=== PATIENT | male | born 1950 | race Caucasian/White ===

== ENCOUNTER 2019-03-12 17:11 | Emergency (ER) | payer BC, MEDICARE ==
[2019-03-12 19:36] VITALS: TEMP 98.1; BMI 18.8
--- NOTE | 2019-03-12 19:49 | ED PDOC ---
Arrival/HPI - General Chief Complaint: Upper Extremity Problem/Injury Time Seen by Provider: 03/12/19 19:15 Historian: Patient - History of Present Illness Narrative History of Present Illness (Text): 03/12/19 19:46 68 y.o male with no significant past medical history, who presents to the emergency department complaining of left shoulder discomfort past week. Patient initially seen by PMD prescribed steroids.Patient developed some spontaneous bruises in the chest and abdominal area non traumatic.Patient was to go outpatient for CT scan. Patient to ED for evaluation. Patient denies any chest pain, abdominal pain, nausea, vomiting, shortness of breath, fever, chills. Time/Duration: 1 week Symptom Onset: Gradual Symptom Course: Unchanged Context: Home Past Medical History - Provider Review Nursing Documentation Reviewed: Yes - Infectious Disease Hx of Infectious Diseases: None - Psychiatric Hx Substance Use: No - Anesthesia Hx Anesthesia: No Family/Social History - Physician Review Nursing Documentation Reviewed: Yes Family/Social History: No Known Family HX Smoking Status: Never Smoked Hx Alcohol Use: No Hx Substance Use: No Allergies/Home Meds Allergies/Adverse Reactions: Allergies ibuprofen [From Motrin] Allergy (Verified 04/20/16 17:24) RASH Review of Systems - Review of Systems Constitutional: absent: Fevers Respiratory: absent: SOB Cardiovascular: absent: Chest Pain Gastrointestinal: absent: Abdominal Pain, Nausea, Vomiting Musculoskeletal: Other (Left shoulder and chest discomfort. ) Physical Exam Vital Signs Reviewed: Yes Vital Signs Temp Pulse Resp BP Pulse Ox 03/12/19 19:06 98.1 F 73 19 122/75 99 Temperature: Afebrile Blood Pressure: Normal Pulse: Regular Respiratory Rate: Normal Appearance: Positive for: Well-Appearing, Non-Toxic, Comfortable Pain Distress: None Mental Status: Positive for: Alert and Oriented X 3 - Systems Exam Pupils: Present: PERRL Extroacular Muscles: Present: EOMI Respiratory/Chest: Present: Clear to Auscultation, Good Air Exchange. No: Respiratory Distress, Accessory Muscle Use, Wheezes, Rhonchi Cardiovascular: Present: Regular Rate and Rhythm, Normal S1, S2. No: Murmurs Abdomen: Present: Other (Ecchymosis to left lower abdomen and left chest. ). No: Tenderness Upper Extremity: Present: Other (Palpable tenderness to anterior left shoulder. ) Neurological: Present: GCS=15, CN II-XII Intact, Speech Normal Skin: Present: Warm, Dry, Normal Color. No: Rashes Psychiatric: Present: Alert, Oriented x 3, Normal Insight, Normal Concentration Medical Decision Making ED Course and Treatment: 03/12/19 21:52 CONTRAST: With; OMNI 350 100 ml COMPARISON: None provided. FINDINGS: CHEST: LUNGS: No pulmonary mass. The lungs appear essentially clear. PLEURAL SPACES: No pneumothorax evident. No pleural effusions. HEART: No cardiomegaly. No pericardial effusion. LYMPH NODES: No lymphadenopathy is evident. ABDOMEN AND PELVIS: LIVER: Numerous tiny (3-5 mm) cysts are scattered diffusely throughout the liver. No focal suspicious lesions detected. GALLBLADDER AND BILE DUCTS: The gallbladder appears within normal limits. No radioopaque gallstones are seen. No biliary ductal dilatation is evident. PANCREAS: Unremarkable. SPLEEN: Unremarkable. ADRENAL GLANDS: Unremarkable. KIDNEYS, URETERS, AND BLADDER: Unremarkable. No hydronephrosis or nephrolithiasis. No uterteral or bladder calculi. The urinary bladder appeared normal in size and configuration. STOMACH AND BOWEL: Unremarkable appearance of the stomach and bowel. No evidence of bowel obstruction. No evidence suggesting enteritis or colitis. APPENDIX: No evidence of acute appendicitis on CT examination. PERITONEUM: No free fluid. No free air. A small left inguinal hernia is identified which contains fat. There is subtle left kayla-inguinal subcutaneous stranding which may indicate bruising or inflammation. LYMPH NODES: No lymphadenopathy is evident. VASCULATURE: No evidence of abdominal aortic aneurysm. REPRODUCTIVE: The seminal vesicles appeared normal and symmetrical in size. There is mild prostatic hypertrophy noted. The prostate gland measured 5.3 cm transversely. BONES: No acute osseous abnormality. There is evidence of advanced degenerative disc disease at L4-5. IMPRESSION: No acute intra-thoracic abnormality. Numerous tiny hepatic cysts scattered diffusely throughout the liver. A small left inguinal hernia is noted which contains fat. There is subtle left kayla-inguinal subcutaneous stranding which may indicate bruising or inflammation. Mild prostatic hypertrophy. Electronically signed on March 12, 2019 9:30:42 PM EDT by: Tyshawn Chapman M.D., M.B.A., Certified By [facility] [employer] Trained MRI and CT Specia 03/12/19 22:24 Case was discussed with s nurse practioner who saw the patient in the office.Given normal findings patient is requested follow up in the office.Will place on analgesics/ortho follow up as well. 03/12/19 22:32 Chest X-ray reviewed by me, shows: No acute process. - RAD Interpretation Radiology Orders: 03/12/19 19:23 CHEST PORTABLE [RAD] Stat 03/12/19 19:25 CHEST,ABD,PEL W/IV CONT ONLY [CT] Stat - EKG Interpretation EKG Interpretation (Text): 03/12/19 20:05 EKG shows: NSR at [address]/T changes. Interpreted by ED Physician: Yes Type: 12 lead EKG - Scribe Statement The provider has reviewed the documentation as recorded by the Scribe Sandra Rodrigez All medical record entries made by the Scribe were at my direction and personally dictated by me. I have reviewed the chart and agree that the record accurately reflects my personal performance of the history, physical exam, medical decision making, and the department course for this patient. I have also personally directed, reviewed, and agree with the discharge instructions and disposition. Disposition/Present on Arrival - Present on Arrival Any Indicators Present on Arrival: No History of DVT/PE: No History of Uncontrolled Diabetes: No Urinary Catheter: No History of Decub. Ulcer: No History Surgical Site Infection Following: None - Disposition Have Diagnosis and Disposition been Completed?: Yes Diagnosis: Shoulder bursitis, Medication reaction Disposition: HOME/ ROUTINE Disposition Time: 22:25 Patient Plan: Discharge Condition: GOOD Discharge Instructions (ExitCare): Shoulder Bursitis (DC) Additional Instructions: Take meds as prescribed/stop steroid meds/follow up with your doctor this week as well as orthopedist . Prescriptions: Tramadol HCl [Ultram] 50 mg PO Q6 PRN #12 tab PRN Reason: Pain, Moderate (4-7) Referrals: Ziggy Olivo DO [Staff Provider] - Follow up with primary Forms: [employer] (Irish)
[2019-03-12 20:01] LABS: HEMOGLOBIN 12.7 g/dL (14.0-18.0); MEAN CELL VOLUME 86.2 fl (80.0-105.0); MEAN CORPUSCULAR HEMOGLOBIN 28.2 pg (25.0-35.0); MEAN CORPUSCULAR HGB CONC 32.7 g/dl (31.0-37.0); MEAN PLATELET VOLUME 8.2 fl (7.0-11.0); RBC 4.5 10^6/uL (3.5-6.1); RED CELL DISTRIBUTION WIDTH 13.8 % (11.5-14.5); WHITE BLOOD COUNT 8.1 10^3/uL (4.5-11.0)
[2019-03-12 20:04] LABS: INR 0.99; PARTIAL THROMBOPLASTIN TIME 31.5 Seconds (26.9-38.3)
[2019-03-12 20:05] LABS: ALB/GLOB RATIO 1.1 (1.1-1.8); ALBUMIN 3.7 g/dL (3.0-4.8); ALT/SGPT 32 U/L (7-56); AST/SGOT 44 U/L (17-59); BLOOD UREA NITROGEN 22 mg/dL (7-21); CALCIUM 9.3 mg/dL (8.4-10.5); GFR NON-AFRICAN AMERICAN > 60
[2019-03-12] MEDS ORDERED: Iohexol 350 MG/100 ML VIAL ONE (20:14)
[2019-03-12 20:17] LABS: TROPONIN I < 0.01 ng/mL
[2019-03-12 22:47] VITALS: BP 119/79; PULSE 68; RESP 18; O2SAT 98
--- NOTE | 2019-03-13 07:56 | RAD ---
Date of service: 03/12/2019 HISTORY: chest pain COMPARISON: No prior. TECHNIQUE: 1 view obtained. FINDINGS: LUNGS: No active pulmonary disease. PLEURA: No significant pleural effusion identified, no pneumothorax apparent. CARDIOVASCULAR: No aortic atherosclerotic calcification present. Normal cardiac size. No pulmonary vascular congestion. OSSEOUS STRUCTURES: No significant abnormalities. VISUALIZED UPPER ABDOMEN: Limited elevation left hemidiaphragm. OTHER FINDINGS: None. IMPRESSION: No acute infiltrate bilaterally. No acute cardiovascular disease appreciable. Limited elevation left hemidiaphragm noted.
--- NOTE | 2019-03-13 10:53 | CARD ---
APPROVED REPORT Date of service: 03/12/2019 EKG Measurement Heart [id number] <Conclusion> Normal sinus rhythm Normal ECG
--- NOTE | 2019-03-13 10:57 | CT ---
Date of service: 03/12/2019 PROCEDURE: CT Chest, Abdomen and Pelvis with intravenous contrast HISTORY: Abdominal and back pain COMPARISON: None available. TECHNIQUE: IV dose administered: 100 cc Omnipaque 50 Radiation dose: Total exam DLP = 331.09 mGy-cm. This CT exam was performed using one or more of the following dose reduction techniques: Automated exposure control, adjustment of the mA and/or kV according to patient size, and/or use of iterative reconstruction technique. FINDINGS: CT CHEST WITH CONTRAST: LUNGS: Lingular infiltrate. Mild dependent atelectasis. MEDIASTINUM: Unremarkable. Normal caliber aorta and pulmonary arterial trunk. No aortic dissection. Normal size heart. LYMPH NODES: Unremarkable. PLEURA: Unremarkable. No pneumothorax. No pleural fluid. BONES: Unremarkable. OTHER FINDINGS: None. CT ABDOMEN AND PELVIS: LIVER: Innumerable hepatic cysts the preponderance of which are less than 1 cm. No gross lesion or ductal dilatation. GALLBLADDER AND BILE DUCTS: Unremarkable. PANCREAS: Unremarkable. No gross lesion or ductal dilatation. SPLEEN: Unremarkable. ADRENALS: Unremarkable. No mass. KIDNEYS AND URETERS: Unremarkable. No hydronephrosis. No solid mass. VASCULATURE: No aortic atherosclerotic calcification or mural plaque present. Unremarkable. No aortic aneurysm. BOWEL: Unremarkable. No obstruction. No gross mural thickening. APPENDIX: Normal appendix. PERITONEUM: Unremarkable. No free fluid. No free air. LYMPH NODES: Unremarkable. No enlarged lymph nodes. BLADDER: Unremarkable. REPRODUCTIVE: Enlarged prostate. BONES: No acute fracture. OTHER FINDINGS: Left inguinal hernia containing fat only IMPRESSION: Lingular infiltrate. No acute findings related to/ accounting for the clinical presentation. Additional benign and/or incidental findings described above. Concordant results (preliminary interpretation) provided by [employer]. Procedure Completed: 20:32 Preliminary Report: Interpreted and electronically signed: 21:30. Final Interpretation: 10:53. March 13, 2019.
== END 2019-03-12 22:47 | disposition home or self-care (01) ==
LOC: ED 17:11
DX: M75.50 Bursitis of unspecified shoulder (principal); T50.995A Adverse effect of other drugs, medicaments and biological substances, initial encounter; Y92.89 Other specified places as the place of occurrence of the external cause
CPT/HCPCS: 71045; 71260; 74177; 80053; 82550; 83615; 84484; 85027; 85610; 85730; 93005; 99285; Q9967